=== PATIENT | male | born 1965 | race Caucasian/White ===

== ENCOUNTER 2020-02-11 14:13 | Inpatient (IN) | payer OTHER ==
[~2020-02-11] VITALS: Ht 175.3 cm; Wt 68.6 kg
[2020-02-11 14:14] VITALS: BP 134/92
[2020-02-11 14:40] LABS: ABSOLUTE NEUTROPHILS 6.8 thou/uL (1.4-8.2); HEMOGLOBIN 14.5 gm/dL (14.0-18.0)
[2020-02-11 14:41] LABS: BASOPHILS 0.5 % (0.0-2.0); EOSINOPHILS 1.7 % (0.0-3.0); HEMATOCRIT 41.3 % (42.0-52.0); MCH 33.5 pg (26.0-34.0); MCHC 35.1 g/dL (28.0-37.0); MCV 95.4 fL (80.0-100.0); MONOCYTES 7.9 % (1.0-8.0); PLATELET COUNT 170 thou/uL (150-400); POLYS 76.9 % (36.0-66.0); RBC 4.33 mil/uL (4.50-6.00); RDW 14.6 % (10.5-14.5); WBC 8.8 thou/uL (4.0-11.0)
[2020-02-11 14:46] LABS: ANION GAP 9 mmol/L (7-16); BUN 13 mg/dL (7-18); CALCIUM 8.6 mg/dL (8.5-10.1); CHLORIDE 102 mmol/L (98-107); CO2 25 mmol/L (21-32); CREATININE 1.1 mg/dL (0.7-1.3); GLUCOSE 103 mg/dL (74-106); POTASSIUM 4.9 mmol/L (3.5-5.1); SODIUM 136 mmol/L (136-145)
[2020-02-11 14:56] LABS: ALBUMIN 3.8 g/dL (3.4-5.0); SGOT 55 U/L (15-37); SGPT 61 U/L (30-65); TOTAL BILIRUBIN 0.4 mg/dL (0.2-1.0); TOTAL PROTEIN 7.2 g/dL (6.4-8.2); TROPONIN-I <0.06 ng/mL (<0.06)
[2020-02-11 18:19] VITALS: BP 142/82
[2020-02-11 18:24] VITALS: BP 146/85
--- NOTE | 2020-02-11 18:52 | NUR ---
PT CARE ASSUMED APPROX 1830. PT DENIES PAIN AND SOA. VSS. ALERT AND ORIENTED X4. STEADY GAIT. FOOD TRAY GIVEN. NO DISTRESS NOTED.
[2020-02-11 19:54] VITALS: BP 144/92
[2020-02-12] VITALS (15 sets, daily range): BP systolic 110–137; BP diastolic 71–96
[2020-02-12 03:08] LABS: CHOLESTEROL 153 mg/dL (<200); HDL CHOLESTEROL 86 mg/dL (>40); LDL CHOLESTEROL 44 mg/dL (<100); TC:HDL 1.8 Ratio (Not establshd); TRIGLYCERIDE 115 mg/dL (<150); TROPONIN-I 0.33 ng/mL (<0.06); VLDL 23 mg/dL (<40)
[2020-02-12 03:22] LABS: SERUM ASSESSMENT Clear
--- NOTE | 2020-02-12 08:13 | EKG ---
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
--- NOTE | 2020-02-12 08:19 | EKG ---
[facility] [place] [address] ELECTROCARDIOGRAM REPORT Name: CARMEN LAO Room #: 214-P ADM IN M.R.#: [id number] Admission: 02/11/20 Attend Phys: Thomas Mckeon Discharge: Date of : 61 Report #: [id number] THIS REPORT FOR: cc: JUDY - Yamilet family physician/PCP JUDY - Yamilet family physician/PCP Sd Blue MD [facility] THIS REPORT FOR: //name// [facility] ED Test Date: 2020-02-11 Test Time: 17:11:39 Pat Name: CARMEN LAO Department: Room: [facility] Gender: M 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 : 1965 Requested By: Yeni Perez Order Number: [id number] MD: Sd Blue Measurements Intervals [place] Rate: 79 P: 42 MA: 148 QRS: 56 QRSD: 92 T: 60 QT: 365 QTc: 419 Interpretive Statements Sinus rhythm Abnormal T, consider ischemia, anterior leads Compared to ECG 02/11/2020 14:16:02 T-wave abnormality now present Electronically Signed On 02-12-2020 8:18:58 CDT by Sd Blue [email or web address] <ELECTRONICALLY SIGNED> By: Sd Blue MD, [facility] 02/12/20 0818 171 171 Sd Blue MD, [facility] /EPI
--- NOTE | 2020-02-12 08:30 | NUR ---
A/O X 4.DENIES CHEST PAIN AND SOB.TROPONIN IS INCREASING BUT ASYMPTOMATIC.CARDIOLOGY IS CONSULTED AND INFORMED MONUMENT LETTERER OF THE TROPONIN RESULT.NPO SINCE MIDNIGHT FOR A POSSIBLE PROCEDURE TODAY.LOVENOX NOT GIVEN WELL.MONITOR SHOWS SR.POC CONTINUED.
--- NOTE | 2020-02-12 18:40 | NUR ---
PT CARE ASSUMED AT 0700. ASSESSMENTS CHARTED. MEDICATION CHARTED. PT TO CATH AT 0730; RETURNED AT 0940. CATH; STENT LAD; RT GROIN; MYNX CLOSURE; C/D/I; SOME BRUISING. HEMOSTASIS AT 0929; OFF BEDREST AT 1229.
[2020-02-13 04:06] VITALS: BP 126/79
[2020-02-13 05:00] LABS: HEMATOCRIT 38.4 % (42.0-52.0); MCH 32.7 pg (26.0-34.0); MCHC 33.7 g/dL (28.0-37.0); RBC 3.96 mil/uL (4.50-6.00); RDW 14.3 % (10.5-14.5); WBC 7.2 thou/uL (4.0-11.0)
[2020-02-13 05:29] LABS: ALBUMIN 3.2 g/dL (3.4-5.0); ANION GAP 10 mmol/L (7-16); BUN 11 mg/dL (7-18); CALCIUM 7.9 mg/dL (8.5-10.1); CHLORIDE 104 mmol/L (98-107); CO2 22 mmol/L (21-32); CREATININE 0.8 mg/dL (0.7-1.3); GLUCOSE 96 mg/dL (74-106); POTASSIUM 3.6 mmol/L (3.5-5.1); SGOT 18 U/L (15-37); SGPT 41 U/L (30-65); SODIUM 136 mmol/L (136-145); TOTAL BILIRUBIN 0.6 mg/dL (0.2-1.0); TOTAL PROTEIN 5.9 g/dL (6.4-8.2); TROPONIN-I <0.06 ng/mL (<0.06)
--- NOTE | 2020-02-13 06:55 | NUR ---
A/O X 4.RIGHT GROIN C/D/I WITH BRUISING BUT NO HEMATOMA.IV FLUIDS STOPPED.TAKING PO WELL.DENIES NEEDS.LOVENOX GIVEN.MONITOR SHOWS SR.POC CONTINUED.
--- NOTE | 2020-02-13 07:52 | EKG ---
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
[2020-02-13 08:00] VITALS: BP 117/83
[2020-02-13 08:15] VITALS: BP 117/83
[2020-02-13] MEDS ORDERED: LIPITOR40 MG PO (08:21)
[2020-02-13] MEDS ORDERED: CLOPIDOGREL75 MG PO (08:21)
[2020-02-13] MEDS ORDERED: METOPROLOL SUCC25 M1 PO (08:25)
[2020-02-13] MEDS ORDERED: ASPIR 8181 MG PO (08:25)
[2020-02-13 09:48] VITALS: BP 117/83
--- NOTE | 2020-02-13 18:01 | CATHLAB ---
[facility] [address] [employer] [place] [address] INVASIVE PROCEDURE REPORT Name: CARMEN LAO Room #: 214-P DIS IN M.R.#: [id number] Admission: 02/11/20 Attend Phys: Thomas Flores Mike Discharge: 02/13/20 Date of : 61 Report #: [id number] THIS REPORT FOR: cc: FAM - No family physician/PCP FAM - No family physician/PCP Sander Mortensen MD [facility] ~ APPROVED REPORT Study performed: 02/12/2020 07:19:58 Patient Details Patient Status: In-Patient Room #: 214 The patient is a 54 year-old male Event Personnel Sander Mortensen Briquetter Operator, Virginia Linton RN RN, Kayla Peoples RTR, Bret Mckeon Roberta Monitor, Britney Bazan RTR Monitor Procedures Performed Art Access - R femoral artery* Left Heart Cath w/or w/o Coronaries [id number] [facility] w/wo Plasty Single LAD 218242 Hemostasis w/ Mynx 70716 Initial Mod Sed Same Phys/QHP Gr5y 504346 42178 Mod Sed Same Phys/QHP Ea 895280 Indication Chest pain Procedure Narrative The Right Groin^ was infiltrated with 1% Lidocaine subcutaneous anesthesia. A PINNACLE 6FR Sheath #[id number] sheath was inserted into the RFA^. Coronary angiography was performed using coronary diagnostic catheters. The right coronary system was accessed and visualized with a JR4 catheter. The left coronary system was accessed and visualized with a JL4 catheter. The left ventricle was accessed and visualized with a Pigtail catheter. Left ventriculogram was performed in 30 degree projection. Closure device was deployed with a 6 Fr MYNX CONTROL 6F/7F L#[id number]. The patient tolerated the procedure well and there were no complications associated with the procedure. There was no hematoma. Intraoperative Conscious Sedation Sedation start time: 08:31 Case end Time: 09:26 [facility] [place] [address] INVASIVE PROCEDURE REPORT Name: SHILOCARMEN Room #: 214-P [facility] IN M.R.#: [id number] Admission: 02/11/20 Attend Phys: Thomas Parra Discharge: 02/13/20 Date of : 61 Report #: [id number] Fentanyl 100 mcg Versed 2 mg Fluoro Time: 4.90 minutes Dose: DAP 6338.90 cGycm2 911 mGy Contrast Type and Amount: Omnipaque 145 ml Hemodynamics The aortic pressure is 124/82 mmHg with a mean of 102 mmHg. The left ventricular pressure is 127/10 mmHg with a mean of mmHg. The left ventricular end diastolic pressure is 24 mmHg. PCI Technique Lesion Percutaneous coronary intervention was performed on the proximal left anterior descending artery segment. A LAUNCHER 6FR EBU 3.5 #[id number] Guide Catheter was used to engage the ostium. A .014 Luge wire 182cm Interventional Guidewire was used to cross the lesion. STENT DEPLOYMENT A drug-eluting stent RESOLUTE RADHA OTW 3.0 X 15 #[id number] was inserted and inflated up to 14.00atm for 34seconds. Additional Inflation: 15.00atm for 29seconds. Conclusion 1. Successful PTCA stent of a proximal high-grade 90% eccentric long lesion LAD placement with 3 oh by 15 resolute radha stent postdilated 3.65 mm ALYSHA grade III flow. There is a mid LAD lesion of 50 to 60% will follow. This extends around the apex ALYSHA grade III flow #2 left main free of disease giving rise to LAD and circumflex #3 normal circumflex anatomically dominant no occlusive disease. #4 small nondominant right coronary artery with mild disease #5 normal left jugular size with subtle anterior wall leg EF 50 to 55% Recommendations and plan: Continue aggressive risk factor modification. Dual antiplatelet therapy is initiated. Patient transfer to CCU to follow post stent protocol. <ELECTRONICALLY SIGNED> By: Sander Mortensen MD, FACC 02/13/201800 00 00 Sander Mortensen MD, FACC /INF
== END 2020-02-13 11:43 | disposition home or self-care (01) | DRG 247 ==
LOC: ER 14:13 → EROBS 17:00 → 2N 17:00
PROVIDERS: Emergency Medicine; Internal Medicine Cardiovascular Disease; ADMIT Hospitalist; ATTEND Hospitalist
PROC: B2111ZZ Fluoroscopy of Multiple Coronary Arteries using Low Osmolar Contrast (ICD-10-PCS; principal; 2020-02-11)
PROC: B2151ZZ Fluoroscopy of Left Heart using Low Osmolar Contrast (ICD-10-PCS; principal; 2020-02-11)
PROC: 4A023N7 Measurement of Cardiac Sampling and Pressure, Left Heart, Percutaneous Approach (ICD-10-PCS; principal; 2020-02-11)
PROC: 027034Z Dilation of Coronary Artery, One Artery with Drug-eluting Intraluminal Device, Percutaneous Approach (ICD-10-PCS; principal; 2020-02-11)
DX: I21.4 Non-ST elevation (NSTEMI) myocardial infarction (principal); I10 Essential (primary) hypertension; F10.20 Alcohol dependence, uncomplicated; E78.5 Hyperlipidemia, unspecified; I25.10 Atherosclerotic heart disease of native coronary artery without angina pectoris; Z79.82 Long term (current) use of aspirin; Z82.49 Family history of ischemic heart disease and other diseases of the circulatory system; Z88.1 Allergy status to other antibiotic agents; Z87.891 Personal history of nicotine dependence; Z79.899 Other long term (current) drug therapy
CPT/HCPCS: 10081

== ENCOUNTER → 2020-02-20 | Outpatient (CLI) | payer OTHER ==
[~2020-02-20] MED LIST: ASPIR 8181 MG PO; CLOPIDOGREL75 MG PO; LIPITOR40 MG PO; METOPROLOL SUCC25 M1 PO
== END ==
LOC: SJCVCIMAG 12:30
PROVIDERS: ATTEND Internal Medicine Cardiovascular Disease
DX: R19.09 Other intra-abdominal and pelvic swelling, mass and lump (principal); R10.31 Right lower quadrant pain; I97.610 Postprocedural hemorrhage of a circulatory system organ or structure following a cardiac catheterization; M79.81 Nontraumatic hematoma of soft tissue; Z95.5 Presence of coronary angioplasty implant and graft

== ENCOUNTER → 2021-04-08 | Outpatient (CLI) | payer OTHER | LOC: SJCVCIMAG 10:38 | PROVIDERS: ATTEND Internal Medicine Cardiovascular Disease | DX: I25.10 Atherosclerotic heart disease of native coronary artery without angina pectoris (principal) ==